=== PATIENT | female | born 1975 ===

== ENCOUNTER 2022-04-08 11:58 | Emergency (ER) | payer SELFPAY ==
[2022-04-08] MEDS ORDERED: KETOROLAC 10 MG TAB PO ONE (13:00)
[2022-04-08] MEDS ORDERED: LORazepam 1 MG TAB PO ONE (13:00)
[2022-04-08 13:07] LABS: Benzodiazepines Screen,Urine Negative; Cocaine Screen,Urine Negative; Methadone Screen,Urine Negative; Opiate Screen,Urine Negative
[2022-04-08 13:15] LABS: Bacteria,Urine 1+ /HPF (Negative); Bilirubin,Urine NEG (Negative); Blood,Urine SM (Negative); Color,Urine Amber (Yellow); Hyaline Casts,Urine 24 /LPF; Mucus,Urine 1+ /HPF
[2022-04-08 13:21] LABS: Amphetamine Screen,Urine Positive; Cannabinoid Screen,Urine Positive
[2022-04-08 13:29] LABS: Basophils # (Auto) 0.1 K/mm3 (0.0-0.1); Basophils % (Auto) 0.8 % (0.0-1.8); Eosinophils # (Auto) 0.1 K/mm3 (0.0-0.4); Eosinophils % (Auto) 0.8 % (0.0-4.3); Hemoglobin 15.1 gm/dl (10.1-14.3); Lymphocytes # (Auto) 2.3 K/mm3 (1.2-5.4); Lymphocytes % (Auto) 20.8 % (13.4-35.0); Mean Corpuscular HGB Conc 35 % (30-34); Mean Corpuscular Volume 96 fl (79-97); Monocytes # (Auto) 0.7 K/mm3 (0.0-0.8); Monocytes % (Auto) 6.7 % (0.0-7.3); Platelet Count 300 K/mm3 (140-440); Red Blood Count 4.49 M/mm3 (3.65-5.03); Red Cell Distribution Width 14.3 % (13.2-15.2)
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
[2022-04-08 14:03] LABS: Albumin 4.2 g/dL (3.9-5); Calcium 9.6 mg/dL (8.4-10.2)
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
--- NOTE | 2022-04-09 11:50 | Event Note ---
Date: 04/09/22 NO SIGNIFICANT EVENT; PATIENT REMAINS HEMODYNAMICALLIY STABLE AND AFEBRILE; COVID NEGATIVE. PENDING INPATIENT PSYCH PLACEMENT. - PANIAGUA
[2022-04-09] MEDS: DIVALPROEX DR 125 MG TAB PO SCH ×2 (14:05→22:15)
[2022-04-09] MEDS ORDERED: cloNIDine 0.1 MG TAB PO ONE (20:25)
[2022-04-09] MEDS ORDERED: QUEtiapine 25 MG TAB PO SCH (22:00)
[2022-04-10] MEDS ORDERED: cloNIDine 0.1 MG TAB PO ONE (02:46)
--- NOTE | 2022-04-10 10:38 | Progress Note ---
Subjective - Reason for Consult Consult date: 04/10/22 Reason for consult: suicidal ideation - Chief Complaint Chief complaint: The patient was seen this morning. She reports doing better. the patient denies any current suicidal/homicidal ideation and denies hallucinations. REVIEW OF SYSTEMS Constitutional: Negative for weight loss ENT: Negative for stridor Respiratory: Negative for cough or hemoptysis All other systems reviewed and are negative MENTAL STATUS EXAMINATION General Appearance and Behavior: Age appropriate, wearing appropriate clothes, cooperative, polite with questioning, good eye contact, calm, polite Cooperation: cooperative Psychomotor Behavior: Psychomotor normal Mood: "OK" Affect and affective range: congruent with stated mood Thought Process: Goal directed Thought Content: Reality oriented Speech: Normal volume, Regular rate and rhythm Suicidal Ideation: Denies Homicidal Ideation: Denies Hallucination: Denies Delusions: None elicited Impulse Control: limited Insight and Judgment: Limited Memory: Intact Attention: attentive Orientation: Alert and oriented Diagnoses: Bipolar Disorder Treatment Plan Continue Seroquel 50mg po QHS Depakote 125mg po BID PSYCHOTHERAPY: Supportive psychotherapy provided MEDICAL: Per primary team DELIRIUM PRECAUTIONS: Please re-orient patient frequently, keep lights on during the day, and minimize benzodiazepines and opiates as these medications could worsen patient's confusion. PRODUCER DIRECTOR: Per medical team DISPOSITION:Do not recommend acute psychiatric inpatient treatment. Jewelry Designer will provide patient with psychiatric outpatient resources. Will sign off. Case staffed with Dr. Prakash Medications and Allergies Mental Status Exam - Vital signs Last Vital Signs Temp 98.4 F 04/09/22 20:05 Pulse 100 H 04/10/22 03:01 Resp 16 04/09/22 20:05 BP 161/87 04/10/22 06:21 Pulse Ox 96 04/09/22 20:05
[2022-04-10] MEDS: DIVALPROEX DR 125 MG TAB PO SCH (11:50)
[2022-04-10 12:50] VITALS: BP 161/105
== END 2022-04-10 12:50 | disposition home or self-care (01) ==
LOC: ED 11:58
DX: Z13.30 Encounter for screening examination for mental health and behavioral disorders, unspecified (principal); F10.20 Alcohol dependence, uncomplicated; F17.200 Nicotine dependence, unspecified, uncomplicated; Z20.822 Contact with and (suspected) exposure to COVID-19
CPT/HCPCS: 36415; 73070; 80053; 80307; 81001; 84443; 85025; 87076; 87086; 87186; 99285; U0003; 80320; G0480